=== PATIENT | female | born 1980 | race Caucasian/White ===

== ENCOUNTER → 2022-06-27 09:37 | Outpatient (CLI) | payer OTHER, SELFPAY ==
[2022-06-27 19:46] LABS: Alanine Aminotransferase 27 IU/L (<35); Albumin 4.2 g/dL (3.5-5.0); Albumin Globulin Ratio 1.3 (1.0-2.8); Alkaline Phosphatase 44 U/L (38-126); Aspartate Aminotransferase 24 IU/L (14-36); Bilirubin Total 0.6 mg/dL (0.2-1.3); Blood Urea Nitrogen 15 mg/dL (7-17); Calcium 9.3 mg/dL (8.4-10.2); Carbon Dioxide 28 mmol/L (22-32); Chloride 103 mmol/L (98-107); Estimated Glomerular Filt Rate > 60 mL/min (>60); Globulin 3.3 g/dL (1.7-4.1); Glucose 101 mg/dL (70-100); HEMOLYSIS < 15 (0-50); Magnesium 1.9 mg/dL (1.6-2.3); Potassium 3.6 mmol/L (3.4-5.1); Sodium 139 mmol/L (137-145); Total Protein 7.5 g/dL (6.3-8.2)
[2022-06-27 20:18] LABS: Add Manual Diff / Slide Review NO; Basophils Absolute Auto 0 /uL (0-100); Basophils Percent Auto 0.4 % (0-2); Eosinophils Absolute Auto 100 /uL (0-450); Eosinophils Percent Auto 0.7 % (2-4); Hemoglobin 11.9 g/dL (12.0-16.0); Lymphocytes Absolute Auto 2400 /uL (1100-4500); Lymphocytes Percent Auto 30.5 % (25-40); Mean Corpuscular HGB Conc 33.1 % (30-36); Mean Corpuscular Hemoglobin 28.8 PG (26-34); Mean Corpuscular Volume 87.2 fL (80-100); Monocytes Absolute Auto 600 /uL (0-900); Neutrophils Absolute Auto 4900 /uL (1500-7000); Neutrophils Percent Auto 61.4 % (50-75); Red Blood Cell Count 4.12 X10^6/uL (4.0-5.2); Red Cell Distribution Width 15.6 % (11.6-14.8)
== END ==
PROVIDERS: PCP Family Medicine; Visit Provider Family Medicine
DX: R10.11 Right upper quadrant pain (principal); T62.0X1A Toxic effect of ingested mushrooms, accidental (unintentional), initial encounter
CPT/HCPCS: 80053; 83735; 85025

== ENCOUNTER → 2022-07-09 14:11 | Outpatient (CLI) | payer OTHER, SELFPAY ==
[2022-07-09 21:20] LABS: HIV 1 & 2 Ab/Ag 4th Gen Combo NEGATIVE (NEGATIVE); Hep C Virus Ab w/Reflex Quant NEGATIVE s/c (NEGATIVE)
[2022-07-12 08:09] LABS: Treponema pallidum Antibodies Non Reactive
== END ==
PROVIDERS: PCP Family Medicine
DX: Z11.3 Encounter for screening for infections with a predominantly sexual mode of transmission (principal); Z11.4 Encounter for screening for human immunodeficiency virus [HIV]
CPT/HCPCS: 86696; 86780; 86803; 87389

== ENCOUNTER 2022-11-02 15:37 | Emergency (ER) | payer OTHER, SELFPAY ==
[2022-11-02] VITALS (10 sets, daily range): BP systolic 96–126; BP diastolic 65–83; PULSE 50–69; RESP 14–18; TEMP 36.5; O2SAT 99–100; BMI 21.1
[2022-11-02 17:20] LABS: Alanine Aminotransferase 21 IU/L (<35); Albumin 4.6 g/dL (3.5-5.0); Albumin Globulin Ratio 1.4 (1.0-2.8); Alkaline Phosphatase 43 U/L (38-126); Aspartate Aminotransferase 26 IU/L (14-36); BUN Creatinine Ratio 14.9 (6-22); Bilirubin Total 0.7 mg/dL (0.2-1.3); Blood Urea Nitrogen 11 mg/dL (7-17); Calcium 9.3 mg/dL (8.4-10.2); Carbon Dioxide 23 mmol/L (22-32); Chloride 107 mmol/L (98-107); Estimated Glomerular Filt Rate > 60 mL/min (>60); Globulin 3.3 g/dL (1.7-4.1); Glucose 91 mg/dL (70-100); HEMOLYSIS < 15 (0-50); Lipase 37 U/L (23-300); Potassium 3.5 mmol/L (3.4-5.1); Sodium 138 mmol/L (137-145); Total Protein 7.9 g/dL (6.3-8.2)
[2022-11-02 17:26] LABS: Add Manual Diff / Slide Review NO; Basophils Absolute Auto 100 /uL (0-100); Eosinophils Absolute Auto 100 /uL (0-450); Eosinophils Percent Auto 1.2 % (2-4); Hematocrit 34.2 % (36-46); Hemoglobin 11.3 g/dL (12.0-16.0); Lymphocytes Absolute Auto 2400 /uL (1100-4500); Lymphocytes Percent Auto 36.6 % (25-40); Mean Corpuscular Hemoglobin 28.8 PG (26-34); Mean Corpuscular Volume 87.2 fL (80-100); Monocytes Absolute Auto 500 /uL (0-900); Monocytes Percent Auto 7.5 % (3-14); Neutrophils Absolute Auto 3500 /uL (1500-7000); Neutrophils Percent Auto 53.7 % (50-75); Platelet Count 246 X10^3/uL (150-400); Red Blood Cell Count 3.93 X10^6/uL (4.0-5.2); Red Cell Distribution Width 14.9 % (11.6-14.8); White Blood Cell Count 6.5 X10^3/uL (4.5-11.0)
--- NOTE | 2022-11-02 17:46 | PC.NURSE ---
Pt came out of room upset at wait. Reviewed triage. Discussed that she would be seen. Pt states she is from [place]. Discussed w/ Dr. Farr who ordered toradol for pain medication.
--- NOTE | 2022-11-02 17:48 | PC.NURSE ---
Went in to speak with pt and offer Ketorolac. Pt was crying and saying I just want to see a doctor. I have never been more de-huminized in my life. I asked the pt why she felt that way and she stated I'm am in the ER for a medical emergency and I've been waiting for 2 hours!!! I should not have to wait! I sat down with her and told her that there is only one provider for the entire ER and we try as best we can to get to each pt in a timely manner. I explained to her that we have already tested her blood and urine but the pt continued to state that we have done nothing for her. She declined the Ketorolac stating she doesn't want anything besides the doctor. She was informed that there was one pt to be seen ahead of her unless a critical pt came in. She stated that we didn't care about her at all and I told her that was absolutely not true, that she was as important to us as everyone in here she just has to wait her turn. I again told her that even though the doctor has not been able to get in here to see her yet see is keeping an eye on her results that are coming back. Pt continues to cry and continued to yell whatever! You don't care about me. I guess I'll just wait since I have no other choice! I asked if she wanted a warm blanket, pain or nausea meds before I left the room and she declined. Dr. Farr and financial services consultant aware of interaction.
--- NOTE | 2022-11-02 18:10 | ED.ABDPAIN ---
HPI - Abdominal Pain General Chief Complaint: Abdominal Pain Stated Complaint: gastro symptoms/ate common mushroom T-90 Time Seen by Provider: 11/02/22 18:07 History of Present Illness HPI narrative: 42-year-old female nonsmoker without chronic medical history presents with a chief complaint of ongoing abdominal pain with occasional episodes of nausea and vomiting. She states that on June 18 she ate a Pleurotus ostreatus mushroom and developed severe abdominal pain, nausea and vomiting, at the time she was air lifted off [facility] and was admitted in [place]. In the aftermath she never really got back to baseline, she is had continued right upper quadrant pain as well as right lower quadrant pain but frequently has episodes of crampy abdominal pain and various other parts of her abdomen. She is here today because she is just tired of the ongoing symptoms. She is afraid to eat anything and is terrified that something severe is being missed. She denies obvious provocation or palliation, no radiation of her symptoms, no fever no chills, no change in bowel habits. Related Data Home Medications Medication Instructions Recorded Confirmed No Known Home Medications 08/30/22 08/30/22 Allergies Allergy/AdvReac Type Severity Reaction Status Date / Time mushroom Allergy Severe Swelling Verified 07/02/22 11:55 of Lip/Tongue/Throat Review of Systems Review of Systems Narrative: GENERAL: Denies chills, fatigue, malaise, fever, sweats. HEENT: Denies sinus pain, ear pain, sore throat, difficulty swallowing, dizziness. RESPIRATORY: Denies dyspnea, cough, wheezing, hemoptysis, sputum. CARDIOVASCULAR: Denies chest pain, palpitations, orthopnea, edema, GASTROINTESTINAL: See HPI : Denies dysuria, frequency, incontinence, hematuria, urinary retention. MUSCULOSKELETAL: denies weakness, joint pain, or bony pain SKIN: Denies rash, skin lesions, or other NEUROLOGIC: Denies weakness, headache, numbness, change in speech, confusion, seizures, incoordination. PSYCHIATRIC: No concerning psychosocial issues. 12 point review of systems is negative except for those stated above Patient History Medical History Allergic reaction Anemia Hearing decreased Migraines Tinnitus Surgical History Anesthesia S/P LASIK surgery [place] teeth removed Family History Father Lung cancer Smoker COPD (chronic obstructive pulmonary disease) Social History Smoking Status: Never smoker Smoking Status: Never smoker Exam Narrative Exam Narrative: GENERAL: [42] year old patient appears stated age. Well-developed patient, in mild distress. Anxious HEAD: Atraumatic. Normocephalic. EYES: Pupils equal round and reactive. Extraocular motions intact. No scleral icterus. No injection or drainage. ENT: Nose without bleeding, purulent drainage. Throat without erythema, tonsillar hypertrophy or exudate. Airway patent. NECK: Trachea midline. Non tender CARDIOVASCULAR: Regular rate and rhythm without murmurs, gallops, or rubs. RESPIRATORY: Clear to auscultation. Breath sounds equal bilaterally. No wheezes, rales, or rhonchi. GASTROINTESTINAL: Abdomen soft, non-tender, nondistended. EXTREMITIES: No edema or joint tenderness. BACK: Nontender without deformity or crepitance. No flank tenderness. NEURO: AOx3. SKIN: No rash or erythema of visible areas Initial Vital Signs Initial Vital Signs: Vital Signs Temperature 97.7 F 11/02/22 15:56 Pulse Rate 62 11/02/22 15:56 Respiratory Rate 16 11/02/22 15:56 Blood Pressure 111/83 11/02/22 15:56 Pulse Oximetry 100 11/02/22 15:56 Oxygen Delivery Method Room Air 11/02/22 15:56 Course Orders Ordered: Discontinued Medications Hydromorphone HCl (Hydromorphone 0.5 Mg Inj) 0.5 mg IV NOW ONE Stop: 11/02/22 21:07 Last Admin: 11/02/22 21:13 Dose: Not Given Documented By: RLS Ketorolac Tromethamine (Ketorolac 30 Mg/Ml Vial) 15 mg IV NOW ONE Stop: 11/02/22 17:46 Last Admin: 11/02/22 17:57 Dose: Not Given Documented By: ADELITA Ketorolac Tromethamine (Ketorolac 30 Mg/Ml Vial) 15 mg IV NOW ONE Stop: 11/02/22 18:39 Last Admin: 11/02/22 18:41 Dose: 15 mg Documented By: ST Ondansetron HCl (Ondansetron 4 Mg Odt) 4 mg PO NOW PRN PRN Reason: Nausea And Vomiting Ondansetron HCl (Ondansetron 4 Mg/2 Ml Inj) 4 mg IV NOW PRN PRN Reason: Nausea And Vomiting Vital Signs Vital signs: Vital Signs - 8 hr 11/02/22 20:30 11/02/22 20:31 11/02/22 20:31 Pulse Rate 57 L 55 L Respiratory Rate Blood Pressure 96/65 Pulse Oximetry 100 100 Oxygen Delivery Method Room Air 11/02/22 21:00 11/02/22 21:01 11/02/22 21:01 Pulse Rate 67 56 L Respiratory Rate 18 Blood Pressure 119/78 Pulse Oximetry 100 100 Oxygen Delivery Method 11/02/22 21:30 11/02/22 21:31 11/02/22 21:31 Pulse Rate 65 64 Respiratory Rate 14 Blood Pressure 126/77 Pulse Oximetry 99 99 Oxygen Delivery Method Room Air MDM - Abdominal Pain Lab Data 11/02/22 16:25 11/02/22 16:25 Labs: Lab Results 11/02/22 11/02/22 Range/Units 16:25 16:25 WBC 6.5 (4.5-11.0) X10^3/uL RBC 3.93 L (4.0-5.2) X10^6/uL Hgb 11.3 L (12.0-16.0) g/dL Hct 34.2 L (36-46) % MCV 87.2 (80-100) fL MCH 28.8 (26-34) PG MCHC 33.0 (30-36) % RDW 14.9 H (11.6-14.8) % Plt Count 246 (150-400) X10^3/uL Neut % (Auto) 53.7 (50-75) % Lymph % (Auto) 36.6 (25-40) % [place] % (Auto) 7.5 (3-14) % Eos % (Auto) 1.2 L (2-4) % Baso % (Auto) 1.0 (0-2) % Neut # (Auto) 3500 (8193-6556) /uL Lymph # (Auto) 2400 (9109-5787) /uL [place] # (Auto) 500 (0-900) /uL Eos # (Auto) 100 (0-450) /uL Baso # (Auto) 100 (0-100) /uL Sodium 138 (137-145) mmol/L Potassium 3.5 (3.4-5.1) mmol/L Chloride 107 (98-107) mmol/L Carbon Dioxide 23 (22-32) mmol/L BUN 11 (7-17) mg/dL Creatinine 0.74 (0.52-1.04) mg/dL Estimated GFR > 60 (>60) mL/min BUN/Creatinine Ratio 14.9 (6-22) Glucose 91 (70-100) mg/dL Calcium 9.3 (8.4-10.2) mg/dL Total Bilirubin 0.7 (0.2-1.3) mg/dL AST 26 (14-36) IU/L ALT 21 (<35) IU/L Alkaline Phosphatase 43 (38-126) U/L Total Protein 7.9 (6.3-8.2) g/dL Albumin 4.6 (3.5-5.0) g/dL Globulin 3.3 (1.7-4.1) g/dL Albumin/Globulin Ratio 1.4 (1.0-2.8) Lipase 37 (23-300) U/L Point of care testing: Point of Care Testing Test Results Negative Urine Dip Bedside Urine Glucose Negative Bedside Urine Bilirubin - Negative Bedside Urine Ketone - Negative Urine Specific [place] 1.015 Bedside Urine Occult Blood - Negative Bedside Urine pH 6.0 Bedside Urine Protein - Negative Bedside Urine Urobilinogen - Negative Bedside Urine Nitrite - Negative Bedside Urine Leukocytes - Negative Esterase MDM Narrative Medical decision making narrative: [42] year old patient presents with Multiple etiologies for patient's symptoms considered including, but not limited to: [Gallbladder disease versus pancreatitis versus liver disease versus bowel obstruction versus perforation versus other] Prior Charts reviewed in our EMR Primary Historian: patient Labs reviewed and interpreted by myself: No significant abnormalities requiring specific intervention Imaging reviewed: CT of abdomen and pelvis with IV contrast without specific findings, perhaps some fluid in the proximal bowel consistent with enteritis Patient's history and physical exam are reassuring, labs and imaging show no significant abnormalities, pain is well controlled, she is tolerating orals Patient's symptoms improved over duration of stay with above-stated therapies. Findings and discharge diagnosis discussed with patient/family followed by verbalization of understanding Return precautions discussed with patient/family whom verbalize understanding of diagnosis and plan Discharge Plan Departure Patient Disposition: Home Clinical Impression: Abdominal pain Instructions: DI for Abdominal Pain-Adult Activity Restrictions/Additional Instructions: *You have been diagnosed with [abdominal pain] * As we discussed your history and physical exam as well as labs and imaging are very reassuring. There is no evidence of any severe diagnoses that would require a specific or immediate intervention. *What to do: *Please continue to take your regular medications as directed. *Please follow up with your primary care provider in 2-3 days, call for an appointment. Let them know you were seen in the Emergency Department and that we ask that you be seen in follow up. We will electronically transmit a record of today's note if your PCP is in our system * as we discussed I have included the contact information for our surgeons, please call their office on Saturday, let them know you were seen and evaluated here and we would like you seen in follow-up. I will electronically transmitted a copy today's note. *Please consider a clear liquid diet for the next 24-48 hours and then slowly advance to regular as tolerated. Also, try to avoid alcohol, nicotine, caffeine, spicy, acidic or fatty foods as this may worsen your symptoms *If you do not have a primary care provider please contact the [facility] Resource line at [phone]. They will ask some questions about your medical history and help get you set up with a doctor in the community. *Return to Emergency Department if you should have any new, worsening or concerning symptoms, such as [fever greater than 101 F, shaking chills, worsening pain, persistent vomiting or other bothersome symptoms] Prescriptions: No Action No Known Home Medications Referrals: Christina Hathaway MD [Physician] - Elke Tang MD [Primary Care Provider] - Stand Alone Forms: Patient Portal/API
--- NOTE | 2022-11-02 18:25 | PC.NURSE ---
Visitor in pt room w/ her permission. She was upset and visitor was attempting to calm her. She yelled at him to fuck off and get out. Visitor left. Pt continues to be crying loudly, attempted to verbally reassured but declines attempts.
--- NOTE | 2022-11-02 18:32 | DI.CT.S_ITS ---
PROCEDURE: CT ABDOMEN PELVIS W CON INDICATIONS: severe abdominal pain TECHNIQUE: After the administration of IV contrast, axial sections were acquired from the lung bases to the pubic symphysis. Coronal and sagittal reformats were performed. For radiation dose reduction, the following was used: automated exposure control, adjustment of mA and/or kV according to patient size. COMPARISON: None. FINDINGS: Image quality: Excellent. Lung bases: Unremarkable. Heart: Heart is normal in size. ABDOMEN: Liver: There is mild focal fatty infiltration in the anterior left hepatic lobe. Gallbladder: Within normal limits without calcified gallstones. Biliary ducts: No biliary ductal dilatation. Pancreas: Unremarkable. Spleen: Normal in size. Adrenal Glands: No adrenal nodules. Kidneys and Ureters: No hydronephrosis. Stomach and Bowel: Stomach, small bowel loops, and colon are normal in caliber and wall thickness. The appendix is normal. There is mild fluid distention of the ascending and proximal transverse colon with air-fluid levels which may reflect a gastroenteritis. Peritoneum: There is a small amount of intraperitoneal free fluid which appears within physiologic limits. No free air. Ventral Wall: No hernia. Abdominal Nodes: No retroperitoneal or mesenteric adenopathy by size criteria. Vessels: Aorta and inferior vena cava are normal in size. PELVIS: Pelvic Organs: There are dorsally enhancing cysts within the ovaries bilaterally, measuring up to 2.4 cm on the right and 2.1 cm on the left. Bladder: Unremarkable. Pelvic Nodes: No enlarged lymph nodes. Miscellaneous: No inguinal hernias are seen. Bones: Visualized osseous structures demonstrate no suspicious focal lesions. IMPRESSION: 1. Mild fluid distention in the proximal colon with air-fluid levels may reflect a gastroenteritis. No evidence of bowel obstruction. 2. No evidence of appendicitis. 3. Peripherally enhancing ovarian cysts bilaterally likely represent physiologic cysts. Dictated by: Torres Del Cid M.D. on 11/02/2022 at 21:20 Approved by: Torres Del Cid M.D. on 11/02/2022 at 21:24
[2022-11-02] MEDS: KETOROLAC 30 MG/ML VIAL 15 MG IV (18:41)
--- NOTE | 2022-11-02 21:22 | PC.NURSE ---
Pt continues to refuse pain medication states I don't want to be treated like a junkie. Education provided however pt continues to refuse. Verbalized significant frustration at staff regarding long stay. Encouraged to have patience.
== END 2022-11-02 21:55 | disposition home or self-care (01) ==
PROVIDERS: Emergency Medicine; Emergency Provider Emergency Medicine; PCP Family Medicine
DX: R10.9 Unspecified abdominal pain (principal); R11.2 Nausea with vomiting, unspecified
CPT/HCPCS: 36415; 74177; 80053; 81003; 81025; 83690; 85025; 93005; 96374; 99284; J1885; Q9967

== ENCOUNTER → 2022-11-12 10:23 | Outpatient (CLI) | payer OTHER, SELFPAY ==
[2022-11-14 13:39] LABS: Interpretation Negative (Negative)
== END ==
PROVIDERS: PCP Family Medicine; Visit Provider Family Medicine
DX: R10.9 Unspecified abdominal pain (principal)
CPT/HCPCS: 83013

== ENCOUNTER → 2023-02-25 12:07 | Outpatient (CLI) | payer OTHER, SELFPAY ==
--- NOTE | 2023-02-25 | DI.US.S_ITS ---
LIMITED ULTRASOUND OF RIGHT BREAST: 02/25/2023 CLINICAL: Parathesia of the Left breast. Bilateral non-bloody nipple discharge. Comparison is made to exams dated: 02/25/2023 ultrasound and 02/25/2023 mammogram - [facility]. Real-time ultrasound of the right breast retroareolar was performed. Martinez scale images of the real-time examination were reviewed. There is benign duct ectasia in the right breast central to the nipple in the retroareolar region. This duct ectasia displays internal echoes. This correlates with the nipple discharge. IMPRESSION: BENIGN There is no sonographic evidence of malignancy. The duct ectasia in the right breast is benign. Return to annual mammogram screening schedule is recommended. Clinical followup recommended. If discharge becomes bloody or if there is a clinical concerning palpable abnormality, reimaging should be obtained. This exam was interpreted at Station ID: [id number]. Electronically Signed By: Simone burnham/:02/25/2023 13:43:00 Entry: - 02/26/2023 13:41:59 Ultrasound BI-RADS: 2 Benign
--- NOTE | 2023-02-25 12:09 | DI.MG.S_ITS ---
BILATERAL DIGITAL DIAGNOSTIC MAMMOGRAM 3D/2D: 02/25/2023 CLINICAL: Baseline exam. Parathesia of the Left breast. No prior exams were available for comparison. Both breasts are heterogeneously dense, which may obscure small masses (category c / 51-75% glandular tissue). No significant masses, calcifications, or other findings are seen in either breast. IMPRESSION: INCOMPLETE: NEEDS ADDITIONAL IMAGING EVALUATION There is no abnormality seen in either breast to correspond with the non-bloody discharge from the nipple, however, ultrasound is recommended. There is no abnormality seen in the left breast to correspond with the pain, however, ultrasound is recommended. Based on the Tyrer Cuzick model (a risk assessment model) the patient's lifetime risk is 8.2% and her 10 year risk is 1.5%. According to the ACR, ACS, and NCCN guidelines, an annual breast MRI exam along with mammogram is recommended if the patient's lifetime risk is 20% or greater. This exam was interpreted at Station ID: [id number]. NOTE: For mammograms, a report in lay terms will be sent to the patient. Approximately 15% of breast malignancies will not be visualized mammographically. In the management of a palpable breast mass, a negative mammogram must not discourage biopsy of a clinically suspicious lesion. Electronically Signed By: Simone Plascencia M.D. lc/:02/25/2023 13:41:38 ACR BI-RADS Category 0: Incomplete 3340F
--- NOTE | 2023-02-25 12:09 | DI.US.S_ITS ---
LIMITED ULTRASOUND OF LEFT BREAST: 02/25/2023 CLINICAL: Parathesia of the Left breast. Bilateral non-bloody nipple discharge. Comparison is made to exam dated: 02/25/2023 mammogram - [facility]. Real-time and continuous wave Doppler ultrasound of the left breast 4 o'clock, and retroareolar regions were performed. Martinez scale images of the real-time examination were reviewed. There is benign duct ectasia in the left breast central to the nipple in the retroareolar region. This duct ectasia displays internal echoes. This correlates with the nipple discharge. IMPRESSION: BENIGN There is no sonographic evidence of malignancy. The duct ectasia in the left breast is benign. There is no abnormality seen in the left breast to correspond with the pain at 4 o'clock, however, clinical correlation and clinical followup are recommended. Return to annual mammogram screening schedule is recommended. Clinical followup recommended. If discharge becomes bloody or if there is a clinical concerning palpable abnormality, reimaging should be obtained. This exam was interpreted at Station ID: [id number]. Electronically Signed By: Simone Plascencia M.D. lc/:02/25/2023 13:44:12 letter sent: Clinical Evaluation Ultrasound BI-RADS: 2 Benign
== END ==
PROVIDERS: PCP Family Medicine; Referring Provider Family Medicine; Visit Provider Family Medicine
DX: N60.42 Mammary duct ectasia of left breast (principal); R92.2 Inconclusive mammogram; N60.41 Mammary duct ectasia of right breast; R20.2 Paresthesia of skin
CPT/HCPCS: 76642; 77066; G0279

== ENCOUNTER → 2023-03-07 14:46 | Outpatient (CLI) | payer OTHER, SELFPAY ==
[2023-03-07 20:40] LABS: Add Manual Diff / Slide Review NO; Basophils Absolute Auto 0 /uL (0-100); Basophils Percent Auto 0.5 % (0-2); Eosinophils Absolute Auto 100 /uL (0-450); Eosinophils Percent Auto 1.3 % (2-4); HEMOLYSIS < 15 (0-50); Hematocrit 33.3 % (36-46); Hemoglobin 11.2 g/dL (12.0-16.0); Iron 49 ug/dL (37-170); Lymphocytes Absolute Auto 2400 /uL (1100-4500); Lymphocytes Percent Auto 36.7 % (25-40); Mean Corpuscular HGB Conc 33.7 % (30-36); Monocytes Absolute Auto 400 /uL (0-900); Monocytes Percent Auto 6.7 % (3-14); Neutrophils Absolute Auto 3600 /uL (1500-7000); Neutrophils Percent Auto 54.8 % (50-75); Red Blood Cell Count 3.87 X10^6/uL (4.0-5.2); Red Cell Distribution Width 15.6 % (11.6-14.8); White Blood Cell Count 6.5 X10^3/uL (4.5-11.0)
[2023-03-07 20:53] LABS: Percent Iron Saturation 12 % (15-50); Total Iron Binding Capacity 412 ug/dL (265-497); Transferrin 366 mg/dL (206-381)
[2023-03-07 21:21] LABS: Ferritin 6 ng/mL (6-137)
[2023-03-07 21:53] LABS: Folate 15.7 ng/mL (2.76-20.0); Vitamin B12 Reflex MMA if <400 469 pg/mL (239-931)
== END ==
PROVIDERS: PCP Family Medicine; Visit Provider Family Medicine
DX: D64.9 Anemia, unspecified (principal)
CPT/HCPCS: 82607; 82728; 82746; 83540; 83550; 85025